=== PATIENT | male | born 1985 | race African-American/Black ===

== ENCOUNTER 2020-05-13 06:37 | Emergency (ER) | payer BC ==
[~2020-05-13] VITALS: Ht 175.3 cm; Wt 61.4 kg
[2020-05-13 06:45] VITALS: BP 139/73
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
[2020-05-13] MEDS ORDERED: CYCL5TAB PO (08:09)
[2020-05-13] MEDS ORDERED: NAPR-682 PO (08:09)
== END 2020-05-13 08:14 | disposition home or self-care (01) ==
LOC: ER 06:37
DX: M25.512 Pain in left shoulder (principal); R07.81 Pleurodynia; G89.11 Acute pain due to trauma; V43.52XA Car driver injured in collision with other type car in traffic accident, initial encounter; Y93.89 Activity, other specified; Y92.488 Other paved roadways as the place of occurrence of the external cause; Y99.8 Other external cause status
CPT/HCPCS: 71101; 73030; 99284

== ENCOUNTER 2020-05-16 06:19 | Emergency (ER) | payer BC ==
[~2020-05-16] VITALS: Ht 175.3 cm; Wt 61.4 kg
[~2020-05-16 06:19] MED LIST: CYCL5TAB PO; NAPR-682 PO
[2020-05-16 06:25] VITALS: BP 133/86
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
[2020-05-16] MEDS ORDERED: ACET1TAB33 PO (07:16)
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
[2020-05-16] MEDS ORDERED: METH4TAB2 PO (07:25)
[2020-05-16] MEDS ORDERED: LIDOCAINE 1% Multi-Dose 20 ML VIAL. INJ ONE (07:30)
== END 2020-05-16 07:40 | disposition home or self-care (01) ==
LOC: ER 06:19
DX: S16.1XXA Strain of muscle, fascia and tendon at neck level, initial encounter (principal); M50.20 Other cervical disc displacement, unspecified cervical region; V89.2XXA Person injured in unspecified motor-vehicle accident, traffic, initial encounter; Y92.488 Other paved roadways as the place of occurrence of the external cause; Y93.89 Activity, other specified; Y99.8 Other external cause status
CPT/HCPCS: 72125; 99284; A4565

== ENCOUNTER 2020-12-04 06:01 | Emergency (ER) | payer BC, OTHER ==
[~2020-12-04] VITALS: Ht 175.3 cm; Wt 61.0 kg
[~2020-12-04 06:01] MED LIST changes: +ACET1TAB33 PO; +METH4TAB2 PO
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
[2020-12-04 07:39] LABS: BASO % 0 % (0-3); EOS # 0.2 x10^3/uL (0.0-0.7); EOS % 2 % (0-3); HEMATOCRIT 43.5 % (39.0-53.0); HEMOGLOBIN 14.4 g/dL (13.0-17.5); LYMPH # 1.2 x10^3/uL (1.0-4.8); LYMPH % 18 % (24-48); MEAN CORPUSCULAR HEMOGLOBIN 30 pg (25-35); MEAN CORPUSCULAR HGB CONC 33 g/dL (31-37); MEAN CORPUSCULAR VOLUME 89 fL (79-100); MONO % 15 % (0-9); NEUT # 4.3 x10^3/uL (1.8-7.7); NEUT % 65 % (31-73); PLATELET COUNT 190 x10^3/uL (140-400); WHITE BLOOD COUNT 6.7 x10^3/uL (4.0-11.0)
[2020-12-04 07:44] LABS: FECAL OB PT POSITIVE (NEG)
[2020-12-04 07:57] LABS: CALCIUM 8.6 mg/dL (8.5-10.1); GFR 101.7; POTASSIUM 4.4 mmol/L (3.5-5.1)
[2020-12-04 08:14] VITALS: BP 113/63
== END 2020-12-04 08:20 | disposition home or self-care (01) ==
LOC: ER 06:01
DX: K92.1 Melena (principal)
CPT/HCPCS: 36415; 80048; 82274; 85025; 99283